=== PATIENT | female | born 1990 | race Hispanic/Latino ===

== ENCOUNTER 2024-05-30 09:47 | Emergency (ER) | payer OTHER ==
[~2024-05-30] VITALS: Ht 162.6 cm; Wt 78.9 kg
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
[2024-05-30] MEDS: HYDROcodone/APAP 5/325 1 TAB TABLET PO ONE (10:53)
[2024-05-30] MEDS: ketOROlac 15MG/ML VIAL (15MG/ML) IM ONE (10:53)
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
[2024-05-30] MEDS ORDERED: MELO-108 PO (10:57)
[2024-05-30] MEDS ORDERED: ACET-2079 PO (10:57)
[2024-05-30 11:04] VITALS: BP 134/86; PULSE 72; RESP 20; TEMP 97.9; O2SAT 99
== END 2024-05-30 11:14 | disposition home or self-care (01) ==
LOC: EDH 09:47
DX: S22.070A Wedge compression fracture of T9-T10 vertebra, initial encounter for closed fracture (principal); Z79.899 Other long term (current) drug therapy; X58.XXXA Exposure to other specified factors, initial encounter; Y93.89 Activity, other specified; Y92.488 Other paved roadways as the place of occurrence of the external cause; Y99.8 Other external cause status
CPT/HCPCS: 99285; 72131; 72128; 96372; J1885

== ENCOUNTER → 2024-07-02 | Outpatient (CLI) | payer OTHER ==
[~2024-07-02] MED LIST: ACET-2079 PO; MELO-108 PO
--- NOTE | 2024-07-02 17:03 | HMCIMG ---
THORACIC SPINE 3VWS HISTORY: Back pain COMPARISON: None FINDINGS: 3 images of thoracic spine were obtained. There is straightening of normal lordotic curvature which may be related to muscle spasm or positioning. Possible minimal endplate compression fractures are seen involving T9, T10, T11 and T12 with 5% loss of height.. Degenerative changes are seen. IMPRESSION: 1. Findings as described above.
== END | disposition home or self-care (01) ==
LOC: RAH 15:20
PROVIDERS: ATTEND Family Medicine
DX: M47.814 Spondylosis without myelopathy or radiculopathy, thoracic region (principal); R93.6 Abnormal findings on diagnostic imaging of limbs
CPT/HCPCS: 72072

== ENCOUNTER → 2025-02-06 | Outpatient (CLI) | payer OTHER ==
--- NOTE | 2025-02-06 15:25 | HMCIMG ---
EXAM: CR Thoracic Spine, 3 View. CLINICAL HISTORY: PAIN; DORSALGIA,UNSPECIFIED;WEDGE COMPRESSION FX T9-T10 VERTEBRA COMPARISON: None provided. FINDINGS: BONES: No acute fracture or aggressive appearing osseous lesion. DISCS / DEGENERATIVE CHANGES: The disc spaces are preserved. SOFT TISSUES: The paraspinal soft tissue lines are unremarkable. The visualized lungs are clear. MISCELLANEOUS: Visualization of the upper thoracic spine is limited on the lateral view by overlying structures. IMPRESSION: No acute thoracic spine osseous abnormality. /[place]
== END | disposition home or self-care (01) ==
LOC: RAH 10:56
PROVIDERS: ATTEND Orthopaedic Surgery
DX: S22.070A Wedge compression fracture of T9-T10 vertebra, initial encounter for closed fracture (principal); M54.9 Dorsalgia, unspecified; X58.XXXA Exposure to other specified factors, initial encounter; Y93.89 Activity, other specified; Y92.89 Other specified places as the place of occurrence of the external cause; Y99.8 Other external cause status
CPT/HCPCS: 72070